=== PATIENT | male | born 1980 | race Caucasian/White ===

== ENCOUNTER 2018-05-16 19:15 | Emergency (ER) | payer MEDICAID, OTHER ==
--- NOTE | 2018-05-16 19:25 | CPEKG ---
Heart Rate: 86 RR Interval: 698 P-R Interval: 131 QRSD Interval: 96 QT Interval: 372 QTC Interval: 445 P [place]: 65 QRS [place]: 187 T Wave [place]: 68 EKG Severity - OTHERWISE NORMAL ECG - EKG Impression: SINUS RHYTHM EKG Impression: RIGHT AXIS DEVIATION Electronically Signed By: Judah Bean 16-May-2018 19:58:43
[2018-05-16] MEDS ORDERED: ONDANSETRON 4 MG/2 ML VIAL IVP ONE (19:36)
[2018-05-16] MEDS ORDERED: NS 1,000 ML IV ONE ×2 (19:36→20:21)
[2018-05-16] MEDS ORDERED: HYOSCYAMINE SULFATE 0.125 MG TAB PO ONE (19:39)
--- NOTE | 2018-05-16 19:43 | EDPHY ---
H & P Stated Complaint: Substernal chest pain radiating to RUQ x 3 days with nausea/ vomiting. Time Seen by Provider: 05/16/18 19:21 HPI/ROS: This patient developed epigastric pain starting 3 days ago after he drink more than his usual 45 bourbon is a day and developed onset of vomiting once a day over the last 3 days including shortly prior to arrival. This evening after vomiting he had increased pain in the epigastrium and also pain that radiated for the 1st time up into the chest. This alarmed him and prompted his visit to the emergency department-driven by his daughter for evaluation today. He reports that he tried Pepto-Bismol and Prilosec [id number] prior to arrival without improvement but reports that he vomited after trying this medications. He reports that he feels improved sitting upright in terms of severity of the pain compared lying supine and notes no other clear exacerbating factors. Currently he describes the epigastric pain as burning in nature 7/10 in intensity. It does not radiate to his back and does radiate slightly into his chest. He admits feeling anxious and having a mild tremor with no alcohol intake over the past 3 days. ROS: Constitutional: He reports some subjective chills and diaphoresis but no other constitutional symptoms over the past few days. HEENT: Mild coryza this week attributes to seasonal allergies. No other complaints. Pulmonary: He has a mild smoker's cough that is unchanged. No shortness of breath. No pleuritic pain. Cardiovascular: As per HPI. No heart palpitations. No lightheadedness. No leg swelling. GI: Diminished appetite for the past few days. He also reports diarrhea described as loose watery stools but 10 episodes a day for the past 3 days. : Mild dysuria at the end of his stream for the past 24 hr. No frequency. No urgency. No testicular pain or swelling. Neuro: No confusion. No hallucinations. No headache Psychiatric: Denies any complaints except anxiety. Complete review of symptoms otherwise negative. Source: Patient Exam Limitations: No limitations - Personal History Current Tetanus Diphtheria and Acellular Pertussis (TDAP): Yes Tetanus Vaccine Date: 2017 - Medical/Surgical History Hx Asthma: No Hx Chronic Respiratory Disease: No Hx Diabetes: No Hx Cardiac Disease: No Hx Renal Disease: No Hx Cirrhosis: No Hx Alcoholism: No Hx HIV/AIDS: No Hx Splenectomy or Spleen Trauma: No Other PMH: 4-6 drinks bourbon/day, dental abscess/surgery, GERD, PNA - Family History Significant Family History: No pertinent family hx - Social History Smoking Status: Current every day smoker Alcohol Use: Heavy (He admits 45 Bruno is a day on average until the last 3 days when quit drinking due to epigastric pain and vomiting.) Drug Use: None 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 - Physical Exam Exam: Vital signs notable for hypertension, otherwise normal vitals General Appearance: Alert, no distress. Eyes: Pupils equal and round no pallor or injection. No scleral icterus. ENT, Mouth: Mucous membranes dry. Intraoral exam reveals recent dental extraction left lower premolar. No gingival swelling or fluctuance about site. Respiratory: There are no retractions, lungs are clear to auscultation. Cardiovascular: Regular rate and rhythm. No murmur gallop rub. Gastrointestinal: Hyperactive bowel sounds, soft: Mild epigastric tenderness the partially reproduces pain. Neurological: GCS 15 with no focal deficits. He has a fine diffuse tremor. No asterixis. Skin: Warm and dry, no rashes. Musculoskeletal: Neck is supple nontender. Extremities are symmetrical, full range of motion. Psychiatric: Patient is anxious. Otherwise mood and affect are normal DIFFERENTIAL DIAGNOSIS: After history and physical exam differential diagnosis was considered for alcohol gastritis, esophagitis, pancreatitis, esophageal spasm, myocardial ischemic disease, GERD, mild alcohol withdrawal, dehydration, metabolic abnormalities, UTI Constitutional: Initial Vital Signs Temperature (C) 36.6 C 05/16/18 19:30 Heart Rate 90 05/16/18 19:30 Respiratory Rate 20 05/16/18 19:30 Blood Pressure 155/138 H 05/16/18 19:30 O2 Sat (%) 99 05/16/18 19:30 O2 Delivery Mode Room Air Allergies/Adverse Reactions: No Known Allergies Allergy (Unverified 05/16/18 19:29) Home Medications: Medication Instructions Recorded Hydrocodone/APAP 5/325 [[place] 1 each PO 05/16/18 5/325 (*)] Ibuprofen [Advil] 200 mg PO 05/16/18 Omeprazole Magnesium [Prilosec] 05/16/18 Medical Decision Making - Diagnostics EKG Interpretation: 12 lead EKG performed at 7:23 p.m. Reveals sinus rhythm at 86 Intervals: Normal throughout [place]: P of 65, QRS of 187, T of 68 ST segments: Normal throughout Overall assessment: sinus rhythm with right axis deviation. Imaging Results: Imaging Impressions Chest X-Ray 05/16/18 19:46 Impression: No significant radiographic abnormality. Specifically, a source for chest pain is not identified. ED Course/Re-evaluation: I get an initial CIWA score of 6-8 IV normal saline bolus, Zofran IV, Levsin sublingual, Ativan 1 mg IV, and after nausea improved, Maalox p.o. Labs: CBC is normal, comp metabolic panel reveals mild elevation of AST to 86 with normal high 59. Amylase is elevated on p.o. C testing. Lipase now only sent over the hospital for further evaluation Lipase came back greater than 6600 and amylase of 489 At 8:25 p.m. The patient reports after initial round of medications his pain is down to 5/10. He still has mild nausea. His tremor has resolved after Ativan. He feels less anxious. Reglan and Benadryl ordered at 8:26 p.m. I informed patient's of his initial study results-normal chest x-ray and EKG, labs normal exception of elevated amylase with mild elevation of AST. Explained the pending lipase study At 9:40 p.m. We called our hospital main lab and/or told the lipase is very high and still being diluted. This patient's presentation is consistent with alcohol pancreatitis. I counseled him regarding this in some detail answered all his questions. The patient requests [facility] for his hospitalization since he lives [place] the [address] from that facility. At 9:56 p.m. Patient's pain is down to mild intensity in his nausea has resolved. He has completed 2 L normal saline bolus. Vital signs are normal. Discussion: Patient presents with alcohol abuse resulting in findings consistent with alcohol induced pancreatitis without SIRS at this point. Symptoms are controlled. He remained stable. He expresses remorse regarding alcohol abuse as desire to quit alcohol. His CIWA score on arrival was 6-8 treated with 1 mg of IV Ativan with improvement-resolution of anxiety and tremors. He will be admitted to [facility] for acute pancreatitis I spoke with Dr. Hensley, hospitalist at [facility] accepts the patient for inpatient medicine bed at 22:03 - Data Points Laboratory Results: Laboratory Results 05/16/18 19:30 05/16/18 05/16/18 05/16/18 20:06 19:52 19:48 WBC RBC Hgb Hct MCV MCH MCHC RDW Plt Count MPV Neut % (Auto) Lymph % (Auto) [place] % (Auto) Eos % (Auto) Baso % (Auto) Nucleat RBC Rel Count Absolute Neuts (auto) Absolute Lymphs (auto) Absolute Monos (auto) Absolute Eos (auto) Absolute Basos (auto) Absolute Nucleated RBC Immature Gran % Immature Gran # POC Sodium 138 mEq/L mEq/L (135-145) POC Potassium 3.5 mEq/L mEq/L (3.3-5.0) POC Chloride 94.0 mEq/L L mEq/L (97-110) POC Total CO2 28 mEq/L mEq/L (22-31) POC BUN 5 mg/dL L mg/dL (7-23) POC Creatinine 0.7 mg/dL mg/dL (0.7-1.3) POC Glucose 111 mg/dL H mg/dL (70-100) POC Calcium 9.9 mg/dL mg/dL (8.5-10.4) POC Total Bilirubin 1.2 mg/dL mg/dL 1.2 mg/dL mg/dL (0.1-1.4) (0.1-1.4) POC GGT 460 IU/L H IU/L (5-65) POC AST 89 IU/L H IU/L 86 IU/L H IU/L (17-59) (17-59) POC ALT 67 IU/L IU/L 69 IU/L IU/L (21-72) (21-72) POC Alk Phosphatase 81 IU/L IU/L 82 IU/L IU/L (38-126) (38-126) POC Troponin I 0.00 ng/mL ng/mL (0.00-0.08) POC Total Protein 6.8 g/dL g/dL 6.9 g/dL g/dL (6.3-8.2) (6.3-8.2) POC Albumin 3.9 g/dL g/dL 3.8 g/dL g/dL (3.5-5.0) (3.5-5.0) POC Amylase 348 IU/L H IU/L (30-110) Amylase Lipase 05/16/18 05/16/18 19:30 19:30 WBC 7.38 10^3/uL 10^3/uL (3.80-9.50) RBC 4.78 10^6/uL 10^6/uL (4.40-6.38) Hgb 16.7 g/dL g/dL (13.7-17.5) Hct 45.5 % % (40.0-51.0) MCV 95.2 fL fL (81.5-99.8) MCH 34.9 pg H pg (27.9-34.1) MCHC 36.7 g/dL g/dL (32.4-36.7) RDW 11.3 % L % (11.5-15.2) Plt Count 139 10^3/uL L 10^3/uL (150-400) MPV 10.0 fL fL (8.7-11.7) Neut % (Auto) 78.2 % H % (39.3-74.2) Lymph % (Auto) 13.4 % L % (15.0-45.0) [place] % (Auto) 7.3 % % (4.5-13.0) Eos % (Auto) 0.4 % L % (0.6-7.6) Baso % (Auto) 0.3 % % (0.3-1.7) Nucleat RBC Rel Count 0.0 % % (0.0-0.2) Absolute Neuts (auto) 5.77 10^3/uL 10^3/uL (1.70-6.50) Absolute Lymphs (auto) 0.99 10^3/uL L 10^3/uL (1.00-3.00) Absolute Monos (auto) 0.54 10^3/uL 10^3/uL (0.30-0.80) Absolute Eos (auto) 0.03 10^3/uL 10^3/uL (0.03-0.40) Absolute Basos (auto) 0.02 10^3/uL 10^3/uL (0.02-0.10) Absolute Nucleated RBC 0.00 10^3/uL 10^3/uL (0-0.01) Immature Gran % 0.4 % % (0.0-1.1) Immature Gran # 0.03 10^3/uL 10^3/uL (0.00-0.10) POC Sodium POC Potassium POC Chloride POC Total CO2 POC BUN POC Creatinine POC Glucose POC Calcium POC Total Bilirubin POC GGT POC AST POC ALT POC Alk Phosphatase POC Troponin I POC Total Protein POC Albumin POC Amylase Amylase 489 IU/L H IU/L (30-110) Lipase 6678 IU/L H IU/L (23-300) Medications Given: Discontinued Medications Al Hydroxide/Mg Hydroxide (Maalox Susp) 30 ml PO EDNOW ONE Stop: 05/16/18 19:51 Last Admin: 05/16/18 20:01 Dose: 30 ml Diphenhydramine HCl (Benadryl Injection) 25 mg IVP EDNOW ONE Stop: 05/16/18 20:26 Last Admin: 05/16/18 20:33 Dose: 25 mg Hyoscyamine Sulfate (Levsin, Hyomax-Sl) 0.125 mg PO EDNOW ONE Stop: 05/16/18 19:40 Last Admin: 05/16/18 19:45 Dose: 0.125 mg Sodium Chloride (Ns) 1,000 mls @ 0 mls/hr IV EDNOW ONE; Wide Open PRN Reason: Protocol Stop: 05/16/18 19:37 Last Admin: 05/16/18 19:43 Dose: 1,000 mls Sodium Chloride (Ns) 1,000 mls @ 0 mls/hr IV EDNOW ONE; Wide Open PRN Reason: Protocol Stop: 05/16/18 20:22 Last Admin: 05/16/18 20:34 Dose: 1,000 mls Ketorolac Tromethamine (Toradol) 15 mg IVP EDNOW ONE Stop: 05/16/18 21:35 Last Admin: 05/16/18 21:44 Dose: 15 mg Lorazepam (Ativan Injection) 1 mg IVP EDNOW ONE Stop: 05/16/18 19:46 Last Admin: 05/16/18 19:58 Dose: 1 mg Metoclopramide HCl (Reglan Injection) 10 mg IVP EDNOW ONE Stop: 05/16/18 20:26 Last Admin: 05/16/18 20:33 Dose: 10 mg Ondansetron HCl (Zofran) 4 mg IVP EDNOW ONE Stop: 07/02/18 19:37 Last Admin: 05/16/18 19:43 Dose: 4 mg Point of Care Test Results: Chemistry 05/16/18 05/16/18 05/16/18 20:06 19:52 19:48 POC Sodium 138 mEq/L mEq/L (135-145) POC Potassium 3.5 mEq/L mEq/L (3.3-5.0) POC Chloride 94.0 mEq/L L mEq/L (97-110) POC Total CO2 28 mEq/L mEq/L (22-31) POC BUN 5 mg/dL L mg/dL (7-23) POC Creatinine 0.7 mg/dL mg/dL (0.7-1.3) POC Glucose 111 mg/dL H mg/dL (70-100) POC Calcium 9.9 mg/dL mg/dL (8.5-10.4) POC Total Bilirubin 1.2 mg/dL mg/dL 1.2 mg/dL mg/dL (0.1-1.4) (0.1-1.4) POC GGT 460 IU/L H IU/L (5-65) POC AST 89 IU/L H IU/L 86 IU/L H IU/L (17-59) (17-59) POC ALT 67 IU/L IU/L 69 IU/L IU/L (21-72) (21-72) POC Alk Phosphatase 81 IU/L IU/L 82 IU/L IU/L (38-126) (38-126) POC Troponin I 0.00 ng/mL ng/mL (0.00-0.08) POC Total Protein 6.8 g/dL g/dL 6.9 g/dL g/dL (6.3-8.2) (6.3-8.2) POC Albumin 3.9 g/dL g/dL 3.8 g/dL g/dL (3.5-5.0) (3.5-5.0) POC Amylase 348 IU/L H IU/L (30-110) Urine Dip Collection Date 05/16/18 Collection Time 08:08 Specific [place] (1.002-1.030) 1.010 PH (5.0-7.5) 8.5 Leukocytes (Negative) Negative Nitrites (Negative) Negative Protein (Negative) Negative Glucose (Negative) Negative Ketones (Negative) Negative Urobilnogen (0.2-1.0 EU) 0.2 Bilirubin (Negative) Negative Blood (Negative) Negative Departure - Departure Disposition: Acute Care Hospital Not [facility] Clinical Impression: Alcohol abuse Acute pancreatitis Qualifiers: Pancreatitis type: alcohol induced Acute pancreatitis complication: unspecified Qualified Code(s): K85.20 - Alcohol induced acute pancreatitis without necrosis or infection Condition: Fair Referrals: NONE *PRIMARY CARE P,. [Primary Care Provider] - As per Instructions
[2018-05-16] MEDS ORDERED: LORazepam 2 MG/ML INJ IVP ONE (19:45)
[2018-05-16] MEDS ORDERED: MAG HYDROX/AL HYDROX/SIMETH 30 ML UDCUP PO ONE (19:50)
[2018-05-16] MEDS ORDERED: METOCLOPRAMIDE 10 MG/2 ML VIAL IVP ONE (20:25)
[2018-05-16 21:10] LABS: PLATELET COUNT 139 10^3/uL (150-400)
[2018-05-16] MEDS ORDERED: KETOROLAC 15 MG/1 ML SDV IVP ONE (21:34)
[2018-05-16 22:37] VITALS: BP 126/88
== END 2018-05-16 22:52 | disposition short-term general hospital (02) ==
LOC: CED 19:15
DX: K85.20 Alcohol induced acute pancreatitis without necrosis or infection (principal); F10.10 Alcohol abuse, uncomplicated; F17.200 Nicotine dependence, unspecified, uncomplicated; E86.9 Volume depletion, unspecified
CPT/HCPCS: 71046-PO; 80053-PO; 80076-PO; 82150-PO; 84484-PO; 96374; J1200; J1885; J2060; J2765

== ENCOUNTER 2018-09-06 01:57 | Emergency (ER) | payer MEDICAID, OTHER ==
[2018-09-06 02:02] VITALS: BP 142/83
--- NOTE | 2018-09-06 02:24 | EDPHY ---
H & P Stated Complaint: R lip swelling since Wednesday night Time Seen by Provider: 09/06/18 02:24 HPI/ROS: HPI CHIEF COMPLAINT: Right lower lip swelling possible infection HISTORY OF PRESENT ILLNESS: Very pleasant 38-year-old male, states he is otherwise healthy, presents emergency room with right lower lip swelling and drainage. No fever. No trouble swallowing. No tongue swelling. No sublingual swelling. No fever. Patient states that this been present swollen and painful over the last 48 hr. Patient is drain that he states that he got pus out of it. Past Medical History: Denies significant medical history Past Surgical History: Recent dental extraction last Wednesday. Or 6 days ago. Social History: Smokes tobacco. Family History: Noncontributory ROS REVIEW OF SYSTEMS: 10 Systems were reviewed and negative with the exception of the elements mentioned in the history of present illness. Exam Constitutional triage nursing summary reviewed, vital signs reviewed, awake/ alert. Eyes normal conjunctivae and sclera, EOMI, PERRLA. HENT oropharynx: Asymmetrical right lower lip swelling. On the exterior aspect of the lip border there is a yellow crusting lesion. I do not appreciate a vesicle. No evidence of herpes. Underneath the tongue is not swollen. No signs of Leonard's. Poor dentition present. No stridor. No drooling. No significant facial cellulitis. Asymmetrical lip swelling of the right lower lip. Does not cross midline. Tender palpation. moist mucus membranes, no epistaxis, neck supple/ no meningismus, no raccoon eyes. Respiratory clear to auscultation bilaterally, normal breath sounds, no respiratory distress, no wheezing. Cardiovascular rate normal, regular rhythm, no murmur, no edema, distal pulses normal. Gastrointestinal soft, non-tender, no rebound, no guarding, normal bowel sounds, no distension, no pulsatile mass. Genitourinary no CVA tenderness. Musculoskeletal no midline vertebral tenderness, full range of motion, no calf swelling, no tenderness of extremities, no meningismus, good pulses, neurovascularly intact. Skin pink, warm, & dry, no rash, skin atraumatic. Neurologic awake, alert and oriented x 3, AAOx3, moves all 4 extremities equally, motor intact, sensory intact, CN II-XII intact, normal cerebellar, normal vision, normal speech. Psychiatric normal mood/affect. Heme/Lymph/Immune no lymphadenopathy. Differential Diagnosis: Includes but is not limited to in a particular order facial cellulitis, lip cellulitis, lip abscess, MRSA infection, strep infection , herpes infection Medical Decision Making: Plan for this patient requesting pain medicine here. Cocoa will be provided for pain control. Recommend warm compresses 2 to 3 times a day. Will place on Keflex and Bactrim. Additionally acyclovir as it is possible this is a HSV the inflammation. We discussed return precautions he understands return emergency room if develops worsening swelling, pain, fever. Trouble swallowing or trouble breathing. Or oropharyngeal swelling. He understands Here in emergency room he appears well nontoxic has asymmetrical right lower lip swelling. Appears to be infected. Unclear HSV versus strep versus MRSA infection. Plan for warm compresses 2 to 3 times a day. Antibiotics Keflex and Bactrim. Acyclovir. Return precautions discussed the patient is comfortable this plan understands. Re-evaluation: Source: Patient - Personal History Current Tetanus/Diphtheria Vaccine: Yes Tetanus Vaccine Date: 2017 - Medical/Surgical History Hx Asthma: No Hx Chronic Respiratory Disease: No Hx Diabetes: No Hx Cardiac Disease: No Hx Renal Disease: No Hx Cirrhosis: No Hx Alcoholism: No Hx HIV/AIDS: No Hx Splenectomy or Spleen Trauma: No Other PMH: 4-6 drinks bourbon/day, dental abscess/surgery, GERD, PNA - Social History Smoking Status: Heavy smoker Constitutional: Initial Vital Signs Temperature (C) 36.5 C 09/06/18 01:59 Heart Rate 78 09/06/18 01:59 Respiratory Rate 18 09/06/18 01:59 Blood Pressure 142/83 H 09/06/18 01:59 O2 Sat (%) 97 09/06/18 01:59 O2 Delivery Mode Room Air Allergies/Adverse Reactions: No Known Allergies Allergy (Unverified 05/16/18 19:29) Home Medications: Medication Instructions Recorded Ibuprofen [Advil] 200 mg PO 05/16/18 Acyclovir [Zovirax 400 mg (*)] 400 mg PO BID #14 tab 09/06/18 Cephalexin [Keflex] 500 mg PO Q6H #28 cap 09/06/18 Sulfamethox/Tmp 800/160 mg 1 tab PO BID@1000,2200 #14 tab 09/06/18 [Bactrim Ds] Departure - Departure Disposition: Home, Routine, Self-Care Clinical Impression: Infection of lip Condition: Good Instructions: Cellulitis (ED), Oral Herpes Simplex Virus Infections (ED) Additional Instructions: 1. Warm compresses 2. Antibiotics as prescribed 3. Antiviral as prescribed 4. Return if worse. Worsening swelling, pain, fever Referrals: NONE *PRIMARY CARE P,. [Primary Care Provider] - As per Instructions [facility],. [Clinic] - As per Instructions Prescriptions: Acyclovir [Zovirax 400 mg (*)] 400 mg PO BID #14 tab Cephalexin [Keflex] 500 mg PO Q6H #28 cap Sulfamethox/Tmp 800/160 mg [Bactrim Ds] 1 tab PO BID@1000,2200 #14 tab
[2018-09-06] MEDS ORDERED: CEPHALEXIN 500MG PREPACK#4 BTL TAKEHOME ONE (02:28)
[2018-09-06] MEDS ORDERED: HYDROCODONE/APAP 5/325 TAB PO ONE (02:28)
[2018-09-06] MEDS ORDERED: CEPHALEXIN 500 MG CAP PO ONE (02:28)
[2018-09-06] MEDS ORDERED: HYDROCOD/APAP 5/325 PREPACK#6 BTL TAKEHOME ONE (02:28)
[2018-09-06] MEDS ORDERED: SULFAMETHOX/TMP 800/160 MG 1 TAB PO ONE (02:28)
[2018-09-06] MEDS ORDERED: SULFAMET/TMP DS PREPACK#2 BTL TAKEHOME ONE (02:28)
[2018-09-06] MEDS ORDERED: ACYCLOVIR 400 MG PREPACK#4 BTL TAKEHOME ONE (02:31)
[2018-09-06] MEDS: ACYCLOVIR 400 MG TAB PO ONE (02:39)
== END 2018-09-06 02:52 | disposition home or self-care (01) ==
DX: K13.0 Diseases of lips (principal); F17.200 Nicotine dependence, unspecified, uncomplicated; Z98.818 Other dental procedure status